=== PATIENT | female | born 1995 | race Caucasian/White ===

== ENCOUNTER 2020-01-29 10:59 | Inpatient (IN) ==
[2020-01-29] MEDS ORDERED: OXYTOCIN 30 UNITS/500 ML BAG IV PRN ×2 (12:32)
--- NOTE | 2020-01-29 12:46 | History & Physical Report ---
Date of Service January 29, 2020 Assessment & Plan (1) Post term at 41 weeks gestation: Admit to L&D, EFM/toco. Labs. IV fluids. OK for epidural. Pitocin. Admission and Anticipated Discharge Date Admission Date: January 29, 2020 History of Present Illness Chief Complaint: induction of labor Primary Care Provider: Ivon Burnett MD 25yo @ 41 0/7, here for IOL for postdates. Ortiz balloon inserted last night, fell out 8am today. Feeling well today. + movement, no vaginal bleeding, no leaking of fluid. Occasional contractions. uncomplicated. Allergies Allergy/AdvReac Type Severity Reaction Status Date / Time No Known Allergies Allergy Verified 01/29/20 11:17 Home Medications Home Medications Medication Instructions Recorded Confirmed Type docosahexaenoic acid 200 mg capsule 200 mg PO DAILY 06/18/19 01/29/20 History acetaminophen 325 mg capsule 325 mg PO QID PRN 01/22/20 01/29/20 History calcium carbonate 300 mg (750 mg) 300 mg PO QID PRN 01/22/20 01/29/20 History chewable tablet Patient History Medical History Asthma Encounter for anatomic survey GERD (gastroesophageal reflux disease) Migraine Varicella vaccine Surgical History No pertinent past surgical history Family History Brother Anxiety Grandfather Colorectal cancer Diabetes Father Diabetes Hypertension Grandmother Diabetes Mother Hypertension Hyperlipidemia Aunt Breast cancer Uncle Myocardial infarction Social History Smoking Status: Never smoker Second Hand Exposure: No; Hx Alcohol Use: No (rarely) Hx Substance Use: No Preferred Language: Urdu Revenue Settlements Administrator Required: No Beliefs That Will Affect Care: None marital status: marital status details: Donald Pettit (28) [phone] Current Living Situation: Spouse Current Living Situation Comment: lives with spouse, 1 dog, 1 cat, spouse changes litter current occupational status: employed 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 Feels Safe at Home: Yes Safety Concerns: Feels Safe At This Time Childhood Exposure to Second-Hand Smoke: No Dental Care, Regularly: Yes Physical Activity Frequency: 1-2 Times per Week Review of Systems All systems reviewed & are unremarkable except as noted in HPI & below Physical Exam Physical Exam: Cervix 4/70/-2 FHT Cat 1 [place] occasional Constitutional: WD/WN, vitals as above Respiratory: normal respiratory effort, lungs clear to auscultation no respiratory distress Cardiovascular: Rate/Rhythm: regular rate and regular rhythm Gastrointestinal (Abdomen): Inspection/Auscultation: abdomen normal to inspection Percussion/Palpation: abdomen soft; abdomen nontender Gravid. No s/s chorio or abruption. Skin: no rashes, warm and dry Psychiatric: A+Ox3, euthymic affect Results & Data ([facility]) Vital Signs (Past 12 Hours) Vital Signs Temp Pulse Resp BP 01/29/20 11:15 37.4 C 20 01/29/20 11:10 120 H 119/65 Coding Level of Care Code None Diagnoses Post term at 41 weeks gestation O48.0; Z3A.41
[2020-01-29] MEDS: LACTATED RINGER'S 1,000 ML IV PRN ×2 (13:07→16:57)
[2020-01-29 13:22] LABS: Hematocrit (blood only) 39.8 % (37-47); Hemoglobin 13.2 g/dL (12.0-16.0); Mean Corpuscular Hemoglobin 31.1 pg (25-34); Mean Corpuscular Hgb Conc 33.2 g/dL (32-36); Mean Corpuscular Volume 93.6 fL (80-100); Platelet Count 121 K/uL (130-400); Platelet Estimate Decreased (Normal); RDW Coefficient of Variation 13.8 % (11.5-14.5); RDW Standard Deviation 47.3 fL (36.4-46.3); Red Blood Count 4.25 M/uL (4.2-5.4); White Blood Count 13.88 K/uL (4.8-10.8)
[2020-01-29] MEDS ORDERED: BUTORPHANOL TARTRATE 1 MG/ML VIAL IV STA (16:13)
[2020-01-29] MEDS ORDERED: BUTORPHANOL TARTRATE 1 MG/ML VIAL ONE (16:16)
[2020-01-29] MEDS ORDERED: ePHEDrine sulfate 50 MG/ML AMP ONE (16:25)
[2020-01-29] MEDS ORDERED: BUPIVACAINE 0.25% 30 ML VIAL ONE ×2 (16:25→23:44)
[2020-01-29] MEDS ORDERED: fentaNYL citrate 100 MCG/2 ML VIAL ONE (16:25)
[2020-01-29] MEDS ORDERED: fentaNYL 2MCG/ML ROPIV 1.25MG/ML 100 ML BAG EPI ONE (16:26)
--- NOTE | 2020-01-29 16:47 | Anesthesiology Consultation ---
Date of Service January 29, 2020 Assessment & Plan Chart Review Chart Review: Patient NOT seen in Pre Admission Testing and Acceptable Risk for Labor Epidural Consults Requested none ASA ASA2 Proposed Anesthesia Anesthesia Type: Labor Epidural Risk / Benefits Reviewed With: PT / POA / Parent / Guardian, Accepts Plan and Informed Consent Obtained History Height/Weight Height: 5 ft 2 in Weight: 95.254 kg Allergies Allergy/AdvReac Type Severity Reaction Status Date / Time No Known Allergies Allergy Verified 01/29/20 11:17 Medications Home Medications Medication Instructions Recorded Confirmed Last Taken docosahexaenoic acid 200 mg capsule 200 mg PO DAILY 06/18/19 01/29/20 01/27/20 20:00 acetaminophen 325 mg capsule 325 mg PO QID PRN 01/22/20 01/29/20 01/29/20 05:00 calcium carbonate 300 mg (750 mg) 300 mg PO QID PRN 01/22/20 01/29/20 01/27/20 18:00 chewable tablet Active Medications Generic Name Dose Route Start Last Admin Trade Name Vladimirq PRN Reason Stop Dose Admin Lactated Ringer's 1,000 mls @ 125 mls/hr 01/29/20 12:32 01/29/20 16:23 Lr IV 01/31/20 12:31 999 mls/hr .Q8H PRN Infusion L&D Protocol Protocol Oxytocin 30 units in 500 mls @ 7 mls/hr 01/29/20 12:32 01/29/20 15:15 Pitocin IV 01/31/20 12:31 0.42 units/hr .Q24H PRN 7 mls/hr Labor Induction/Augmentation Titration Protocol 0.42 UNITS/HR NPO Date Last Intake of Fluids: 01/29/20 Time Last Intake of Fluids: 16:46 Date Last Intake of Solids: 01/29/20 Time Last Intake of Solids: 10:00 Past Medical History Medical History Asthma Encounter for anatomic survey GERD (gastroesophageal reflux disease) Migraine Varicella vaccine Exercise / Class Metabolic Activity II 4-5 Yardwork/Stairs/Walk up hill Past Family History Family History Brother Anxiety Grandfather Colorectal cancer Diabetes Father Diabetes Hypertension Grandmother Diabetes Mother Hypertension Hyperlipidemia Aunt Breast cancer Uncle Myocardial infarction Past Surgical History Surgical History No pertinent past surgical history Past Anesthesia History No Family Hx of Anesthesia Complications History of PONV No Hx of Motion Sickness Social History Smoking Status: Never smoker Hx Alcohol Use: No (rarely) Hx Substance Use: No substance use type: does not use Review of Systems Patient denies history of abnormal bleeding or bleeding disorder. Patient denies active use of anticoagulants other than low dose aspirin. Patient denies numbness, tingling or weakness in lower extremities. Negative for chest pain or shortness of breath. Physical Exam Vital Signs Last Vital Signs Temp 37.0 C 01/29/20 15:00 Pulse 105 H 01/29/20 16:40 Resp 18 01/29/20 15:00 BP 137/63 01/29/20 16:06 Pulse Ox 97 01/29/20 16:40 Constitutional not obese (Gravid ) ENMT Mouth: no TMJ abnormality and oral opening not small Thyromental Distance: > or= 3.5 Finger Breadths Mallampati Class: II Neck normal visual inspection; neck extension not limited Respiratory normal respiratory effort Auscultation: lungs clear to auscultation bilaterally Cardiovascular Rate/Rhythm: regular rate and regular rhythm Heart Sounds: no murmur Neurologic moves all extremities Motor/Sensory: no sensory deficit Psychiatric Orientation: alert and oriented x 3 Testing Laboratory Results 01/29/20 12:44
[2020-01-29] MEDS ORDERED: DiphenhydrAMINE HCL 50 MG/ML VIAL IV PRN (17:21)
[2020-01-29] MEDS ORDERED: NALOXONE HCL 0.4 MG/1 ML VIAL/CARP IV PRN (17:21)
[2020-01-29] MEDS ORDERED: ePHEDrine sulfate 50 MG/ML AMP IV PRN (17:21)
[2020-01-29] MEDS ORDERED: NALOXONE HCL 1 MG in SODIUM CHLORIDE 0.9% 1000ML 1,000 ML IV PRN (17:21)
[2020-01-29] MEDS ORDERED: ONDANSETRON INJ 2 MG/ML 2 ML VIAL IV PRN (17:21)
--- NOTE | 2020-01-29 21:56 | Labor Progress Brief Note ---
Date of Service January 29, 2020 Subjective Comfortable with epidural. SVE 5/80/-2 AROM clear fluid. FHT Cat 1 [place] Q 2. Anticipate . Assessment & Plan Admission and Anticipated Discharge Date Admission Date: January 29, 2020 Results & Data ([facility]) Vital Signs (Past 12 Hours) Vital Signs Temp Pulse Resp BP Pulse Ox 01/29/20 21:50 122 H 99 01/29/20 21:45 37.3 C 120 H 18 98 01/29/20 21:41 118 H 121/59 L 01/29/20 21:40 112 H 97 01/29/20 21:35 116 H 98 01/29/20 21:30 127 H 100 01/29/20 21:26 112 H 124/66 01/29/20 21:25 98 H 98 01/29/20 21:20 93 H 99 01/29/20 21:15 121 H 100 01/29/20 21:12 107 H 121/65 01/29/20 21:10 114 H 99 01/29/20 21:05 111 H 99 01/29/20 21:00 110 H 100 01/29/20 20:57 114 H 128/70 01/29/20 20:55 106 H 100 01/29/20 20:50 133 H 100 01/29/20 20:45 129 H 100 01/29/20 20:43 118 H 132/67 01/29/20 20:40 127 H 100 01/29/20 20:35 90 100 01/29/20 20:30 113 H 100 01/29/20 20:26 110 H 116/64 01/29/20 20:25 103 H 98 01/29/20 20:20 115 H 99 01/29/20 20:15 94 H 99 01/29/20 20:12 104 H 108/59 L 01/29/20 20:10 94 H 98 01/29/20 20:05 117 H 99 01/29/20 20:00 103 H 100 01/29/20 19:55 116 H 99 01/29/20 19:50 107 H 98 01/29/20 19:45 91 H 99 01/29/20 19:43 106 H 115/56 L 01/29/20 19:40 99 H 98 01/29/20 19:35 98 H 99 01/29/20 19:30 95 H 99 01/29/20 19:27 92 H 109/56 L 01/29/20 19:25 95 H 100 01/29/20 19:20 91 H 99 01/29/20 19:15 89 99 01/29/20 19:12 90 116/60 01/29/20 19:10 86 100 01/29/20 19:05 36.8 C 94 H 18 100 01/29/20 19:00 100 H 16 100 01/29/20 18:57 109 H 113/58 L 01/29/20 18:55 96 H 100 01/29/20 18:50 98 H 98 01/29/20 18:45 101 H 16 100 01/29/20 18:40 99 H 99 01/29/20 18:36 88 108/63 01/29/20 18:35 85 98 01/29/20 18:30 117 H 16 97/51 L 99 01/29/20 18:25 84 102/55 L 97 01/29/20 18:21 87 105/58 L 01/29/20 18:20 93 H 95 01/29/20 18:16 97 H 111/55 L 01/29/20 18:15 91 H 18 97 01/29/20 18:11 89 112/55 L 01/29/20 18:10 92 H 96 01/29/20 18:05 90 111/58 L 96 01/29/20 18:00 101 H 16 113/58 L 97 01/29/20 17:55 107 H 106/55 L 97 01/29/20 17:50 109 H 109/55 L 98 01/29/20 17:45 102 H 18 113/59 L 98 01/29/20 17:40 111 H 114/56 L 98 01/29/20 17:36 106 H 117/58 L 01/29/20 17:35 100 H 96 01/29/20 17:30 108 H 18 97 01/29/20 17:28 104 H 112/53 L 01/29/20 17:26 113 H 113/56 L 01/29/20 17:25 107 H 98 01/29/20 17:24 104 H 114/55 L 01/29/20 17:22 104 H 111/54 L 01/29/20 17:20 114 H 114/58 L 97 01/29/20 17:18 111 H 115/55 L 01/29/20 17:16 96 H 16 133/67 01/29/20 17:15 107 H 98 01/29/20 17:10 118 H 98 01/29/20 17:05 96 H 119/77 97 01/29/20 17:00 119 H 98 01/29/20 16:55 115 H 97 01/29/20 16:50 125 H 95 01/29/20 16:45 104 H 97 01/29/20 16:40 105 H 97 01/29/20 16:35 111 H 97 01/29/20 16:30 105 H 96 01/29/20 16:27 108 H 93 01/29/20 16:25 108 H 96 01/29/20 16:20 93 H 100 01/29/20 16:06 93 H 137/63 01/29/20 15:11 112 H 131/76 01/29/20 15:00 37.0 C 01/29/20 14:05 99 H 131/72 01/29/20 13:05 96 H 122/70 01/29/20 11:15 37.4 C 01/29/20 11:10 120 H 119/65 Coding Level of Care Code None
[2020-01-30] MEDS: fentaNYL 2MCG/ML ROPIV 1.25MG/ML 100 ML BAG EPI PRN ×2 (00:05→05:35)
[2020-01-30] MEDS: LACTATED RINGER'S 1,000 ML IV PRN ×2 (00:23→05:04)
[2020-01-30] MEDS ORDERED: Nursing to Pharmacy Communication SCH (05:30)
[2020-01-30] MEDS ORDERED: BUPIVACAINE 0.25% 30 ML VIAL ONE (07:53)
--- NOTE | 2020-01-30 09:44 | Labor Progress Brief Note ---
Date of Service January 30, 2020 Subjective Reason For Note: Routine Evaluation pt aware i am taking over care. comfortable with epidural. Assessment & Plan (1) Post term at 41 weeks gestation: (2) Encounter for elective induction of labor: will begin 2nd stage, rec position change with pushing, categ 2 fhts. Admission and Anticipated Discharge Date Admission Date: January 29, 2020 Physical Exam Constitutional: WD/WN, vitals as above Genitourinary: Manual OB Exam: + cervical dilation 10 cm, + cervical effacement 100% and + station + 2 OB Exam Monitor Tracing: + external FHT monitor used (135 mod variability), + external uterine monitor used, + category II, + normal FHT variability and + variable decelerations Results & Data ([facility]) Vital Signs (Past 12 Hours) Vital Signs Temp Pulse Resp BP Pulse Ox 01/30/20 09:41 74 91 01/30/20 09:40 84 99 01/30/20 09:36 84 116/57 L 01/30/20 09:35 86 99 01/30/20 09:30 98 H 97 01/30/20 09:28 82 91 01/30/20 09:25 88 97 01/30/20 09:20 92 H 124/72 99 01/30/20 09:18 96 H 91 01/30/20 09:15 90 96 01/30/20 09:12 116 H 93 01/30/20 09:10 100 H 98 01/30/20 09:05 98.8 F 114 H 127/63 100 01/30/20 09:00 103 H 100 01/30/20 08:55 98 H 97 01/30/20 08:50 99 H 126/69 98 01/30/20 08:45 86 97 01/30/20 08:40 87 97 01/30/20 08:35 85 97 01/30/20 08:34 83 122/67 01/30/20 08:31 84 122/66 01/30/20 08:30 88 97 01/30/20 08:28 81 125/69 01/30/20 08:25 89 119/64 96 01/30/20 08:22 88 118/64 01/30/20 08:20 88 96 01/30/20 08:19 88 124/70 01/30/20 08:16 86 123/74 01/30/20 08:15 88 96 01/30/20 08:13 86 124/74 01/30/20 08:10 83 127/76 98 01/30/20 08:07 103 H 127/82 01/30/20 08:05 97 H 96 01/30/20 08:04 86 123/72 01/30/20 08:00 90 125/72 99 01/30/20 07:58 93 H 128/69 01/30/20 07:55 95 H 97 01/30/20 07:50 89 96 01/30/20 07:45 86 97 01/30/20 07:40 88 127/60 97 01/30/20 07:35 91 H 99 01/30/20 07:30 103 H 18 99 01/30/20 07:25 89 163/59 H 97 01/30/20 07:20 95 H 98 01/30/20 07:15 96 H 98 01/30/20 07:14 99.1 F 16 01/30/20 07:11 91 H 145/63 H 01/30/20 07:10 97 H 98 01/30/20 07:05 113 H 98 01/30/20 07:00 101 H 97 01/30/20 06:55 100 H 97 01/30/20 06:50 100 H 96 01/30/20 06:45 100 H 97 01/30/20 06:40 95 H 111/56 L 97 01/30/20 06:35 101 H 98 01/30/20 06:30 93 H 98 01/30/20 06:25 103 H 97 01/30/20 06:20 91 H 96 01/30/20 06:15 100 H 98 01/30/20 06:10 97 H 96 01/30/20 06:05 98 H 98 01/30/20 06:00 95 H 98 01/30/20 05:55 101 H 132/73 97 01/30/20 05:50 106 H 97 01/30/20 05:45 104 H 97 01/30/20 05:40 96 H 136/88 97 01/30/20 05:35 100 H 98 01/30/20 05:30 94 H 98 20 05:25 97 H 123/58 L 97 01/30/20 05:20 102 H 98 01/30/20 05:15 96 H 98 01/30/20 05:11 101 H 120/63 01/30/20 05:10 98 H 98 01/30/20 05:05 91 H 98 01/30/20 05:00 98 H 97 01/30/20 04:55 94 H 123/60 96 01/30/20 04:50 96 H 96 01/30/20 04:45 99.1 F 104 H 96 01/30/20 04:40 99 H 96 01/30/20 04:39 96 H 125/59 L 01/30/20 04:35 101 H 97 01/30/20 04:30 98 H 97 01/30/20 04:25 101 H 97 01/30/20 04:24 93 H 124/57 L 01/30/20 04:20 94 H 97 01/30/20 04:15 94 H 97 01/30/20 04:11 92 H 125/66 01/30/20 04:10 95 H 98 01/30/20 04:05 93 H 97 01/30/20 04:00 107 H 99 01/30/20 03:55 107 H 120/79 99 01/30/20 03:50 98 H 98 01/30/20 03:45 101 H 97 01/30/20 03:40 94 H 96 01/30/20 03:39 104 H 124/67 01/30/20 03:35 90 96 01/30/20 03:30 95 H 97 01/30/20 03:26 93 H 121/67 01/30/20 03:25 97 H 97 01/30/20 03:20 101 H 97 01/30/20 03:15 100 H 98 01/30/20 03:11 110 H 128/70 01/30/20 03:10 108 H 98 01/30/20 03:05 102 H 98 01/30/20 03:00 96 H 100 01/30/20 02:55 121 H 116/77 98 0720 02:51 116 H 117/79 01/30/20 02:50 111 H 99 01/30/20 02:48 105 H 93 01/30/20 02:45 136 H 99 01/30/20 02:40 112 H 100 01/30/20 02:35 126 H 100 01/30/20 02:30 98.4 F 110 H 98 01/30/20 02:26 107 H 116/64 01/30/20 02:25 107 H 99 01/30/20 02:20 119 H 100 01/30/20 02:15 111 H 98 01/30/20 02:10 105 H 146/71 H 98 01/30/20 02:05 112 H 97 01/30/20 02:00 115 H 97 01/30/20 01:55 111 H 140/71 97 01/30/20 01:50 114 H 97 01/30/20 01:45 104 H 98 01/30/20 01:40 104 H 135/78 97 01/30/20 01:35 104 H 98 01/30/20 01:30 119 H 97 01/30/20 01:26 125 H 138/78 01/30/20 01:25 124 H 98 01/30/20 01:20 109 H 97 01/30/20 01:15 124 H 98 01/30/20 01:10 94 H 140/66 98 01/30/20 01:05 105 H 97 01/30/20 01:00 119 H 98 01/30/20 00:55 114 H 133/69 99 01/30/20 00:50 90 100 01/30/20 00:45 110 H 99 01/30/20 00:41 105 H 131/74 01/30/20 00:40 108 H 99 01/30/20 00:35 133 H 100 01/30/20 00:30 93 H 100 01/30/20 00:25 125 H 134/72 99 01/30/20 00:20 95 H 99 01/30/20 00:15 118 H 100 01/30/20 00:10 111 H 98 01/30/20 00:09 99 H 134/67 01/30/20 00:06 122 H 131/63 01/30/20 00:05 112 H 96 01/30/20 00:03 102 H 138/63 01/30/20 00:01 98.6 F 01/30/20 00:00 111 H 131/67 96 01/29/20 23:58 116 H 94 01/29/20 23:57 102 H 124/59 L 01/29/20 23:55 101 H 98 01/29/20 23:54 104 H 128/62 01/29/20 23:52 96 H 131/62 01/29/20 23:50 96 H 96 01/29/20 23:48 105 H 93 01/29/20 23:45 100 H 96 01/29/20 23:42 129 H 106/75 01/29/20 23:40 107 H 98 01/29/20 23:35 97 H 97 01/29/20 23:30 97 H 97 01/29/20 23:27 93 H 111/53 L 01/29/20 23:25 99 H 97 01/29/20 23:20 97 H 97 01/29/20 23:15 101 H 97 01/29/20 23:12 91 H 133/60 01/29/20 23:10 104 H 96 01/29/20 23:05 94 H 96 01/29/20 23:00 102 H 98 01/29/20 22:56 114 H 132/61 01/29/20 22:55 100 H 96 01/29/20 22:50 104 H 97 01/29/20 22:45 100 H 97 01/29/20 22:42 99 H 130/60 01/29/20 22:40 113 H 97 01/29/20 22:35 124 H 97 01/29/20 22:30 117 H 98 01/29/20 22:25 110 H 97 01/29/20 22:20 122 H 98 01/29/20 22:15 122 H 98 01/29/20 22:13 121 H 115/60 01/29/20 22:10 121 H 97 01/29/20 22:05 115 H 97 01/29/20 22:00 126 H 98 01/29/20 21:58 123 H 116/71 01/29/20 21:55 123 H 98 01/29/20 21:50 122 H 99 01/29/20 21:45 99.1 F 120 H 18 98 Coding Level of Care Code None Diagnoses Post term at 41 weeks gestation O48.0; Z3A.41 Encounter for elective induction of labor Z34.90
--- NOTE | 2020-01-30 10:49 | Labor Progress Brief Note ---
Date of Service January 30, 2020 Subjective Reason For Note: Routine Evaluation pushing well. Assessment & Plan (1) Post term at 41 weeks gestation: (2) Encounter for elective induction of labor: pushing effectively. cont 2nd stage. fhts categ 2. Admission and Anticipated Discharge Date Admission Date: January 29, 2020 Physical Exam Genitourinary: OB Exam Monitor Tracing: + external FHT monitor used (150 mod variability), + external uterine monitor used (q2), + category II and + variable decelerations Results & Data ([facility]) Vital Signs (Past 12 Hours) Vital Signs Temp Pulse Resp BP Pulse Ox 01/30/20 10:47 109 H 91 01/30/20 10:46 97 H 97 01/30/20 10:41 97 H 99 01/30/20 10:40 101 H 93 01/30/20 10:36 90 99 01/30/20 10:32 120 H 92 01/30/20 10:31 101 H 100 01/30/20 10:30 24 01/30/20 10:26 123 H 100 01/30/20 10:21 113 H 122/68 96 01/30/20 10:15 94 H 94 01/30/20 10:10 120 H 100 01/30/20 10:06 86 126/64 01/30/20 10:05 110 H 98 01/30/20 10:00 99 H 20 100 01/30/20 09:59 78 89 L 01/30/20 09:55 100 H 100 01/30/20 09:52 88 122/70 01/30/20 09:51 93 H 83 L 01/30/20 09:50 92 H 99 01/30/20 09:45 92 H 100 01/30/20 09:41 74 91 01/30/20 09:40 84 99 01/30/20 09:36 84 116/57 L 01/30/20 09:35 86 99 01/30/20 09:30 98 H 20 97 01/30/20 09:28 82 91 01/30/20 09:25 88 97 01/30/20 09:20 92 H 124/72 99 01/30/20 09:18 96 H 91 01/30/20 09:15 90 96 01/30/20 09:12 116 H 93 01/30/20 09:10 100 H 98 01/30/20 09:05 98.8 F 114 H 127/63 100 01/30/20 09:00 103 H 18 100 01/30/20 08:55 98 H 97 01/30/20 08:50 99 H 126/69 98 20 08:45 86 97 01/30/20 08:40 87 97 01/30/20 08:35 85 97 01/30/20 08:34 83 122/67 01/30/20 08:31 84 122/66 01/30/20 08:30 88 20 97 20 08:28 81 125/69 20 08:25 89 119/64 96 20 08:22 88 118/64 01/30/20 08:20 88 96 01/30/20 08:19 88 124/70 01/30/20 08:16 86 123/74 01/30/20 08:15 88 96 01/30/20 08:13 86 124/74 01/30/20 08:10 83 127/76 98 01/30/20 08:07 103 H 127/82 01/30/20 08:05 97 H 96 01/30/20 08:04 86 123/72 01/30/20 08:00 90 18 125/72 99 01/30/20 07:58 93 H 128/69 01/30/20 07:55 95 H 97 01/30/20 07:50 89 96 01/30/20 07:45 86 97 01/30/20 07:40 88 127/60 97 01/30/20 07:35 91 H 99 01/30/20 07:30 103 H 18 99 01/30/20 07:25 89 163/59 H 97 01/30/20 07:20 95 H 98 01/30/20 07:15 96 H 98 20 07:14 99.1 F 16 01/30/20 07:11 91 H 145/63 H 01/30/20 07:10 97 H 98 01/30/20 07:05 113 H 98 01/30/20 07:00 101 H 97 01/30/20 06:55 100 H 97 01/30/20 06:50 100 H 96 01/30/20 06:45 100 H 97 01/30/20 06:40 95 H 111/56 L 97 01/30/20 06:35 101 H 98 01/30/20 06:30 93 H 98 01/30/20 06:25 103 H 97 01/30/20 06:20 91 H 96 01/30/20 06:15 100 H 98 01/30/20 06:10 97 H 96 01/30/20 06:05 98 H 98 01/30/20 06:00 95 H 98 01/30/20 05:55 101 H 132/73 97 01/30/20 05:50 106 H 97 01/30/20 05:45 104 H 97 01/30/20 05:40 96 H 136/88 97 01/30/20 05:35 100 H 98 01/30/20 05:30 94 H 98 01/30/20 05:25 97 H 123/58 L 97 01/30/20 05:20 102 H 98 01/30/20 05:15 96 H 98 01/30/20 05:11 101 H 120/63 01/30/20 05:10 98 H 98 01/30/20 05:05 91 H 98 01/30/20 05:00 98 H 97 01/30/20 04:55 94 H 123/60 96 01/30/20 04:50 96 H 96 01/30/20 04:45 99.1 F 104 H 96 01/30/20 04:40 99 H 96 01/30/20 04:39 96 H 125/59 L 01/30/20 04:35 101 H 97 01/30/20 04:30 98 H 97 01/30/20 04:25 101 H 97 01/30/20 04:24 93 H 124/57 L 01/30/20 04:20 94 H 97 01/30/20 04:15 94 H 97 01/30/20 04:11 92 H 125/66 01/30/20 04:10 95 H 98 01/30/20 04:05 93 H 97 01/30/20 04:00 107 H 99 01/30/20 03:55 107 H 120/79 99 01/30/20 03:50 98 H 98 01/30/20 03:45 101 H 97 01/30/20 03:40 94 H 96 01/30/20 03:39 104 H 124/67 01/30/20 03:35 90 96 01/30/20 03:30 95 H 97 07/23/20 03:26 93 H 121/67 0720 03:25 97 H 97 20 03:20 101 H 97 0720 03:15 100 H 98 01/30/20 03:11 110 H 128/70 0720 03:10 108 H 98 01/30/20 03:05 102 H 98 07 03:00 96 H 100 01/30/20 02:55 121 H 116/77 98 20 02:51 116 H 117/79 0720 02:50 111 H 99 01/30/20 02:48 105 H 93 01/30/20 02:45 136 H 99 01/30/20 02:40 112 H 100 01/30/20 02:35 126 H 100 01/30/20 02:30 98.4 F 110 H 98 01/30/20 02:26 107 H 116/64 01/30/20 02:25 107 H 99 01/30/20 02:20 119 H 100 01/30/20 02:15 111 H 98 01/30/20 02:10 105 H 146/71 H 98 01/30/20 02:05 112 H 97 01/30/20 02:00 115 H 97 01/30/20 01:55 111 H 140/71 97 01/30/20 01:50 114 H 97 20 01:45 104 H 98 01/30/20 01:40 104 H 135/78 97 20 01:35 104 H 98 01/30/20 01:30 119 H 97 01/30/20 01:26 125 H 138/78 0720 01:25 124 H 98 0720 01:20 109 H 97 20 01:15 124 H 98 20 01:10 94 H 140/66 98 20 01:05 105 H 97 20 01:00 119 H 98 01/30/20 00:55 114 H 133/69 99 07/20 00:50 90 100 0720 00:45 110 H 99 0720 00:41 105 H 131/74 0720 00:40 108 H 99 20 00:35 133 H 100 07/23/20 00:30 93 H 100 01/30/20 00:25 125 H 134/72 99 01/30/20 00:20 95 H 99 01/30/20 00:15 118 H 100 01/30/20 00:10 111 H 98 01/30/20 00:09 99 H 134/67 01/30/20 00:06 122 H 131/63 01/30/20 00:05 112 H 96 01/30/20 00:03 102 H 138/63 01/30/20 00:01 98.6 F 01/30/20 00:00 111 H 131/67 96 01/29/20 23:58 116 H 94 01/29/20 23:57 102 H 124/59 L 01/29/20 23:55 101 H 98 01/29/20 23:54 104 H 128/62 01/29/20 23:52 96 H 131/62 01/29/20 23:50 96 H 96 01/29/20 23:48 105 H 93 01/29/20 23:45 100 H 96 01/29/20 23:42 129 H 106/75 01/29/20 23:40 107 H 98 01/29/20 23:35 97 H 97 01/29/20 23:30 97 H 97 01/29/20 23:27 93 H 111/53 L 01/29/20 23:25 99 H 97 01/29/20 23:20 97 H 97 01/29/20 23:15 101 H 97 01/29/20 23:12 91 H 133/60 01/29/20 23:10 104 H 96 01/29/20 23:05 94 H 96 01/29/20 23:00 102 H 98 01/29/20 22:56 114 H 132/61 01/29/20 22:55 100 H 96 01/29/20 22:50 104 H 97 Coding Level of Care Code None Diagnoses Post term at 41 weeks gestation O48.0; Z3A.41 Encounter for elective induction of labor Z34.90
--- NOTE | 2020-01-30 11:32 | Delivery Summary ---
Vaginal Delivery Summary Date of Service January 30, 2020 The patient dilated to complete and pushed to deliver a viable male infant Apgars 8 and 8 via over 2nd degree perineal laceration. Mouth and nose bulb suctioned at perineum. Shoulders and body delivered with ease. Infant was vigorous and crying at . Cord clamped at 30 seconds of life and to maternal abdomen where the cord was then doubly clamped and cut. Laceration repaired in usual fashion with 3-0 vicryl after 1% local lidocaine anesthesia. Placenta delivered spontaneously and intact, three-vessel cord. Hemostasis achieved with dilute pitocin and uterine massage. Cervix and sulci intact. EBL 300 cc. Mother and baby stable recovery. [facility] [place] Vaginal Delivery Charge Vaginal Delivery Codes: 53277 global code for the antepartum, delivery, and post-
[2020-01-30] MEDS ORDERED: ACETAMINOPHEN 325 MG TAB PO PRN (11:34)
[2020-01-30] MEDS ORDERED: OXYCODONE/ACETAMINOPHEN 5mg/325mg TAB PO PRN (11:34)
[2020-01-30] MEDS ORDERED: OXYTOCIN 20 UNITS in LACTATED RINGER'S 1,000 ML IV SCH (11:45)
[2020-01-30] MEDS: IBUPROFEN 600 MG TAB PO PRN (11:48)
--- NOTE | 2020-01-30 12:00 | Anesthesia Procedure Note ---
Date of Service January 30, 2020 Anesthesia Post Epidural Note Vital Signs Vital Signs: Temp Pulse Resp BP Pulse Ox 38.0 C H 87 24 125/61 87 L 01/30/20 10:57 01/30/20 11:44 01/30/20 10:30 01/30/20 11:44 01/30/20 11:27 Pain Intensity Back: Pain Intensity: 7 Notes Mental Status: alert / awake / arousable and participated in evaluation Patient Amnestic to Procedure: No Nausea / Vomiting: adequately controlled Pain: adequately controlled Airway Patency, RR, SpO2: stable & adequate BP & HR: stable & adequate Hydration State: stable & adequate Neuraxial Anesthesia: was administered and sensory block is resolving Anesthetic Complications: no major complications apparent and Pt Satisfied with anesthetic care Epidural: Removed without complications and With tip intact Notes: mild back pain. site looks c/d/i. will monitor
[2020-01-30] MEDS ORDERED: HYDROCORTISONE ACETATE 25 MG SUPP PR PRN (12:21)
[2020-01-30] MEDS ORDERED: SUPERCREAM 0.870% 15 GM JAR EXT PRN (12:21)
[2020-01-30] MEDS ORDERED: DIPHTHERIA/TETANUS/PERTUSSIS 0.5 ML SYR/VIAL IM ONE (12:21)
[2020-01-30] MEDS ORDERED: BENZOCAINE 20% AER SPR 82.5 GM CAN EXT PRN (12:21)
[2020-01-30] MEDS ORDERED: OXYTOCIN 30 UNITS/500 ML BAG IV PRN (12:21)
[2020-01-30] MEDS: DOCUSATE SODIUM 100 MG CAP PO SCH (20:10)
[2020-01-31] MEDS: IBUPROFEN 600 MG TAB PO PRN ×2 (03:23→15:26)
--- NOTE | 2020-01-31 07:05 | Obstetrical Progress Note ---
Date of Service January 31, 2020 Assessment & Plan (1) examination following vaginal delivery: stable, routine care. , rhpos, ri. Day #:: 1 Subjective Ambulation: ambulating normally Voiding: no voiding problems Diet Tolerance:: regular diet Lochia:: Small Feeding Type:: breast feeding denies pain issues Physical Exam Constitutional WD/WN, vitals as above Respiratory normal respiratory effort, lungs clear to auscultation Cardiovascular Rate/Rhythm: regular rate and regular rhythm Gastrointestinal (Abdomen) Inspection/Auscultation: abdomen normal to inspection Percussion/Palpation: abdomen soft Fundus firm 1cm down Musculoskeletal nt calves no edema Neurologic grossly normal Psychiatric A+Ox3, euthymic affect Results & Data ([facility]) Vital Signs (Past 12 Hours) Vital Signs Temp Pulse Resp BP Pulse Ox 01/31/20 03:05 97.9 F 90 18 114/67 01/30/20 23:05 97.5 F L 105 H 16 106/72 98 01/30/20 19:30 97.5 F L 99 H 16 104/68 97
[2020-01-31] MEDS: DOCUSATE SODIUM 100 MG CAP PO SCH ×2 (08:33→20:45)
--- NOTE | 2020-02-01 07:58 | Obstetrical Progress Note ---
Date of Service February 01, 2020 Assessment & Plan (1) examination following vaginal delivery: good recovery D/C to home follow up in 6 weeks Subjective Ambulation: ambulating normally Voiding: no voiding problems Passing Gas:: Yes Diet Tolerance:: regular diet Lochia:: Moderate Feeding Type:: breast feeding Review of Systems All systems reviewed & are unremarkable except as noted in HPI & below Physical Exam Constitutional WD/WN, vitals as above Psychiatric A+Ox3, euthymic affect Genitourinary OB Exam Abdomen: + fundal height Fundus: + firm and + relation to umbilicus (2 below U) Results & Data ([facility]) Vital Signs (Past 12 Hours) Vital Signs Temp Pulse Resp BP 01/31/20 23:25 98.1 F 80 18 117/68
[2020-02-01] MEDS: DOCUSATE SODIUM 100 MG CAP PO SCH (08:49)
== END 2020-02-01 10:05 | disposition home or self-care (01) | DRG 807 ==
LOC: 4S1 10:59 → 4S2 01-30 15:27

== ENCOUNTER 2023-02-17 07:32 | Inpatient (IN) ==
[2023-02-17] MEDS ORDERED: LIDOCAINE 1% LOCAL 20 ML VIAL INFIL PRN (07:54)
[2023-02-17] MEDS ORDERED: OXYTOCIN 30 UNITS/500 ML BAG IV PRN ×3 (07:54→17:50)
[2023-02-17 09:24] LABS: Hematocrit (blood only) 32.3 % (37.0-47.0); Hemoglobin 10.4 g/dl (12.0-16.0); Mean Corpuscular Hemoglobin 27.7 pg (25.0-34.0); Mean Corpuscular Hgb Conc 32.2 g/dL (32.0-36.0); Mean Corpuscular Volume 86.1 fL (80.0-100.0); Mean Platelet Volume 14.2 fL (9.4-12.4); Nucleated RBC # (auto) 0.02 K/uL (0-0.12); Nucleated RBC % (auto) 0.2 %; Platelet Count 123 K/uL (130-400); RDW Coefficient of Variation 14.6 % (11.5-14.5); RDW Standard Deviation 45.2 fL (36.4-46.3); Red Blood Count 3.75 M/uL (4.20-5.40); White Blood Count 10.55 K/ul (4.8-10.8)
[2023-02-17] MEDS: LACTATED RINGER'S 1,000 ML IV PRN ×2 (09:41→13:45)
--- NOTE | 2023-02-17 09:50 | History & Physical Report ---
Date of Service February 17, 2023 Assessment & Plan (1) Obesity affecting : Plan: 28 yo presents for IOL VSS Fetus cat 1 Labor - 35cc marie placed ,will start pit GBS neg epidural prn Admission and Anticipated Discharge Date Admission Date: February 17, 2023 History of Present Illness Chief Complaint: IOL Primary Care Provider: Kyra Quesada PA-C 28 yo at 40 wga presents for IOL for BMI. +FM; denies ctx, LOF, VB PNI: BMI >40 Past OBGYN Hx: G1 2020 G2 current denies hx STIs Allergies Allergy/AdvReac Type Severity Reaction Status Date / Time No Known Allergies Allergy Verified 02/16/23 09:54 Home Medications Medication Instructions Recorded Confirmed Type prenat.vits,pernell,ynx-hxts-epqdd 1 tab PO DAILY 07/08/22 02/17/23 History Patient History Medical History Acid reflux Acne Asthma Encounter for elective induction of labor Encounter for anatomic survey GERD (gastroesophageal reflux disease) Migraine Migraine headache Post term at 41 weeks gestation examination following vaginal delivery Supervision of normal intrauterine in primigravida Varicella vaccine Surgical History S/P sinus surgery Family History (Updated 07/08/22 @ 09:54 by Wandy Sykes) Brother Anxiety Grandfather Colorectal cancer Diabetes Father Diabetes Hypertension Grandmother Diabetes Mother Hypertension Hyperlipidemia Aunt Breast cancer Uncle Myocardial infarction Denies family history of Ovarian cancer Social History (Updated 07/08/22 @ 09:55 by Wandy Sykes) Smoking Status: Never smoker Second Hand Exposure: No; Do You Dip or Chew Tobacco: No; Hx Alcohol Use: No Hx Substance Use: No Preferred Language: Egyptian Communication Ability: Effective Reflexologist Required: No Beliefs That Will Affect Care: None marital status: marital status details: Donald Pettit (30) [phone] Current Living Situation: Spouse and Family Current Living Situation Comment: Lives with and 3 year old son, 1 dog. 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 Other Information That Helps Us Care for You: No Feels Safe at Home: Yes Safety Concerns: Feels Safe At This Time Childhood Exposure to Second-Hand Smoke: No Dental Care, Regularly: Yes Physical Activity Frequency: 1-2 Times per Week Assistive Devices: None Physical Exam Genitourinary: OB Exam Abdomen: + vertex (confirmed by us) and + estimated weight (7-8) Manual OB Exam: + cervical dilation 2 cm, + cervical effacement 50% and + station -2 OB Exam Monitor Tracing: + external FHT monitor used, + external uterine monitor used (irritability) and + category I (150/mod/+accel/-decel) Results & Data Vital Signs (Past 12 Hours) Vital Signs Temp Pulse Resp BP 02/17/23 07:54 99.1 F 116 H 18 124/65 Laboratory Results OB Labs: Blood Type B Positive 07/19/22 Antibody Screen NEGATIVE 07/19/22 Hemoglobin 11.6 g/dl (12.0-16.0) L 11/29/22 Hematocrit 35.0 % (37.0-47.0) L 11/29/22 Mean Corpuscular Volume 94.5 fL (80.0-100.0) 07/19/22 Platelet Count 214 K/uL (130-400) 07/19/22 Rubella IgG Antibody Immune (Immune) 07/19/22 Rapid Plasma Reagin Nonreactive (Nonreactive) 07/19/22 Hepatitis B Surface Antigen Neg (Neg) 06/26/19 Hepatitis B Surface Antigen. NON-REACTIVE (NON-REACTIVE) 07/19/22 Hepatitis C Antibody (EIA) NON-REACTIVE (NON-REACTIVE) 07/19/22 HIV (1&2) Ab and P24 Ag, 4th Gener Neg (Neg) 06/26/19 HIV (1&2) Ag and Ab Confirmation NON-REACTIVE (NON-REACTIVE) 07/19/22 Glucose 1 Hour 50 gm Load 159 mg/dl (70-130) H 11/29/22 OB Optional Labs: Chlamydia trachomatis RNA Not Detected (NotDetected) 07/19/22 Neisseria gonorrhoeae RNA Not Detected (NotDetected) 07/19/22 Labs Reviewed: declined cf/sma--akh cfdna-low risk-mln GBS neg Coding Level of Care Code None Diagnoses Obesity affecting O99.210
--- NOTE | 2023-02-17 12:43 | Labor Progress Brief Note ---
Date of Service February 17, 2023 Subjective Marie out, feeling pain in back Assessment & Plan (1) Obesity affecting : Plan: 28 yo presents for IOL VSS Fetus cat 1 Labor - marie out, pit at 4. Feeling pretty uncomfortable w/ ctx in back, open to epidural now. Discussed arom after GBS neg epidural prn Admission and Anticipated Discharge Date Admission Date: February 17, 2023 Physical Exam Genitourinary: Manual OB Exam: + cervical dilation (3-4), + cervical effacement 50% and + station -2 OB Exam Monitor Tracing: + external FHT monitor used, + external uterine monitor used (q4) and + category I (120/mod/+accel/-decel) Results & Data Vital Signs (Past 12 Hours) Vital Signs Temp Pulse Resp BP 02/17/23 12:00 98 H 119/59 L 02/17/23 11:48 90 126/69 02/17/23 11:01 96 H 124/61 02/17/23 10:00 100 H 133/78 02/17/23 07:54 99.1 F 116 H 18 124/65 Coding Level of Care Code None Diagnoses Obesity affecting O99.210
[2023-02-17] MEDS ORDERED: fentaNYL citrate PF 100 MCG/2 ML VIAL ONE (12:56)
[2023-02-17] MEDS ORDERED: BUPIVACAINE 0.25% PF 30 ML VIAL ONE (12:57)
[2023-02-17] MEDS ORDERED: SODIUM CHLORIDE 0.9% PF INJ 10 ML VIAL ONE (12:57)
[2023-02-17] MEDS ORDERED: ePHEDrine sulfate 50 MG/ML AMP ONE (12:57)
[2023-02-17] MEDS ORDERED: LIDOCAINE 2%/EPINEPHRINE 1:200,000 20 ML PF ONE (12:57)
[2023-02-17] MEDS ORDERED: fentaNYL 2MCG/ML ROPIVACAINE 1.25MG/ML 100 ML BAG EPI ONE (12:58)
[2023-02-17] MEDS ORDERED: fentaNYL 2MCG/ML ROPIVACAINE 1.25MG/ML 100 ML BAG EPI PRN (13:08)
[2023-02-17] MEDS ORDERED: LIDOCAINE 2%/EPINEPHRINE 1:200,000 20 ML PF EPI STA (13:08)
[2023-02-17] MEDS ORDERED: ROPIVACAINE 0.5% PF 5 MG/ML 20 ML VIAL EPI PRN (13:08)
[2023-02-17] MEDS ORDERED: SODIUM CHLORIDE 0.9% PF INJ 10 ML VIAL EPI PRN (13:08)
[2023-02-17] MEDS ORDERED: LIDOCAINE 2% MPF LOCAL 5 ML VIAL EPI PRN (13:08)
[2023-02-17] MEDS ORDERED: diphenhydrAMINE 50 MG/ML VIAL IV PRN (13:08)
[2023-02-17] MEDS ORDERED: NALOXONE HCL 1 MG in SODIUM CHLORIDE 0.9% 1000ML 1,000 ML IV PRN (13:08)
[2023-02-17] MEDS ORDERED: SODIUM CHLORIDE 0.9% PF INJ 10 ML VIAL EPI STA (13:08)
[2023-02-17] MEDS ORDERED: ePHEDrine sulfate 50 MG/ML AMP IV PRN (13:08)
[2023-02-17] MEDS ORDERED: NALBUPHINE HCL INJ 10 MG/ML AMP IV PRN (13:08)
[2023-02-17] MEDS ORDERED: BUPIVACAINE 0.25% PF 30 ML VIAL EPI PRN (13:08)
[2023-02-17] MEDS ORDERED: NALOXONE HCL 0.4 MG/1 ML VIAL/CARP IV PRN (13:08)
[2023-02-17] MEDS ORDERED: fentaNYL citrate PF 100 MCG/2 ML VIAL EPI PRN (13:08)
[2023-02-17] MEDS ORDERED: fentaNYL citrate PF 100 MCG/2 ML VIAL EPI STA (13:08)
[2023-02-17] MEDS ORDERED: BUPIVACAINE 0.25% PF 30 ML VIAL EPI STA (13:08)
--- NOTE | 2023-02-17 13:08 | Anesthesiology Consultation ---
Date of Service February 17, 2023 Assessment & Plan Chart Review Chart Review: Patient NOT seen in Pre Admission Testing and Acceptable Risk for Labor Epidural Consults Requested none History Height/Weight Height: 5 ft 3 in Weight: 98.43 kg Allergies Allergy/AdvReac Type Severity Reaction Status Date / Time No Known Allergies Allergy Verified 02/16/23 09:54 Medications Home Medications Medication Instructions Recorded Confirmed Last Taken prenat.vits,pernell,tsj-egyk-yaach 1 tab PO DAILY 07/08/22 02/17/23 02/16/23 Active Medications Generic Name Dose Route Start Last Admin Trade Name Freq PRN Reason Stop Dose Admin Oxytocin 30 units in 500 mls @ 4 mls/hr 02/17/23 07:54 02/17/23 11:30 Pitocin IV 02/19/23 07:53 0.24 units/hr .Q24H PRN 4 mls/hr Labor Induction/Augmentation Titration Protocol 0.24 UNITS/HR Lactated Ringer's 1,000 mls @ 125 mls/hr 02/17/23 07:54 02/17/23 09:41 Lr IV 02/19/23 07:53 125 mls/hr .Q8H PRN Administration L&D Protocol Protocol Past Medical History Medical History Acid reflux Acne Asthma Encounter for elective induction of labor Encounter for anatomic survey GERD (gastroesophageal reflux disease) Migraine Migraine headache Post term at 41 weeks gestation examination following vaginal delivery Supervision of normal intrauterine in primigravida Varicella vaccine Past Family History Family History Brother Anxiety Grandfather Colorectal cancer Diabetes Father Diabetes Hypertension Grandmother Diabetes Mother Hypertension Hyperlipidemia Aunt Breast cancer Uncle Myocardial infarction Denies family history of Ovarian cancer Past Surgical History Surgical History S/P sinus surgery Social History Smoking Status: Never smoker Do You Dip or Chew Tobacco: No Hx Alcohol Use: No Hx Substance Use: No substance use type: does not use Physical Exam Vital Signs Last Vital Signs Temp 99.1 F 02/17/23 07:54 Pulse 93 H 02/17/23 13:05 Resp 18 02/17/23 07:54 BP 139/64 02/17/23 13:05 Testing Laboratory Results 02/17/23 08:16 Blood Type B Positive 02/17/23 08:16 Antibody Screen NEGATIVE 02/17/23 08:16
[2023-02-17] MEDS ORDERED: CALCIUM CARBONATE 500 MG CHEWABLE TAB PO PRN (13:54)
[2023-02-17] MEDS ORDERED: HYDROCORTISONE ACETATE 25 MG SUPP PR PRN (17:50)
[2023-02-17] MEDS ORDERED: BENZOCAINE 20% SPRY 85 APPLN/85 GM CAN EXT PRN (17:50)
[2023-02-17] MEDS ORDERED: bisacodyL 10 MG SUPP PR PRN (17:50)
[2023-02-17] MEDS ORDERED: ACETAMINOPHEN 325 MG TAB PO PRN (17:50)
[2023-02-17] MEDS ORDERED: DIPHTHERIA/TETANUS/PERTUSSIS Vaccine (Tdap, Age 7+yrs) 0.5mL SYR/VL IM ONE (17:50)
--- NOTE | 2023-02-17 17:54 | Delivery Summary ---
Vaginal Delivery Summary Date of Service February 17, 2023 Vaginal Delivery Summary and 2nd Degree LAC Patient progressed to 10 cm dilated 100% effaced +1 station pushed over intact perineum with epidural anesthesia and delivered a viable male with weight and Apgars pending. Head of the delivered in ANTHONY position restituted to left transverse. was noted to be vigorous soon after delivery and a 1 minute delayed cord clamping was initiated. Cord was then do uble clamped and cut. remained on maternal abdomen. Cord blood was obtained. Attention was turned to delivery of the placenta which delivered intact with three-vessel cord with gentle cord traction. There is noted to be a second-degree perineal laceration which was repaired with 3-0 Vicryl in the traditional crown stitch. Needle sponge and instrument counts were correct at the completion of the case. Both mother and stable in the immediate postdelivery period. [facility] Vaginal Delivery Charge Delivery Type Details: and 2nd Degree LAC
--- NOTE | 2023-02-17 18:01 | Anesthesia Procedure Note ---
Date of Service February 17, 2023 Anesthesia Post Epidural Note Vital Signs Vital Signs: Temp Pulse Resp BP Pulse Ox 97.7 F 113 H 18 102/57 L 100 02/17/23 14:34 02/17/23 17:50 02/17/23 14:34 02/17/23 17:50 02/17/23 17:45 Notes Mental Status: alert / awake / arousable and participated in evaluation Nausea / Vomiting: adequately controlled Pain: adequately controlled Airway Patency, RR, SpO2: stable & adequate BP & HR: stable & adequate Hydration State: stable & adequate Neuraxial Anesthesia: was administered and sensory block is resolving Anesthetic Complications: no major complications apparent and Pt Satisfied with anesthetic care Epidural: Removed without complications and With tip intact
[2023-02-17] MEDS: DOCUSATE SODIUM 100 MG CAP PO SCH (21:33)
--- NOTE | 2023-02-17 21:40 | Obstetrical Progress Note ---
Date of Service <Juan Philip MD - Last Filed: 02/18/23 09:02> February 17, 2023 Assessment & Plan <Juan Philip MD - Last Filed: 02/18/23 09:02> (1) care following vaginal delivery: Plan Vital Signs reviewed and WNL. (Tmax at 37.3) Hemoglobin Reviewed. 10.4 (02/17/23) (date) 11.0 (today). Blood Type: B+, GBS-, Rubella Immune. Pt is doing well clinically. Encourage Ambulation, Monitor and Control pain with Motrin PRN, Resume regular diet, Monitor Lochia Encourage Breast Feeding. Pt counselled on discharge instructions. <Geraldo Ramos MD - Last Filed: 02/20/23 08:26> (1) care following vaginal delivery: Subjective <Juan Philip MD - Last Filed: 02/18/23 09:02> Ambulation: ambulating normally Voiding: no voiding problems and incontinence (no real constipation, hasn't eaten much since delivery) Passing Gas:: Yes Diet Tolerance:: nausea/vomiting (just a little nausea) Lochia:: Small Feeding Type:: breast feeding (supplementing with formula as needed) Current Pain Level(1-10): 2 (cramping in suprapubic area; 2nd deg laceration residual pain) 28 yo F, , s/p day 1 Eyes: no diplopia or no worsening vision Respiratory: no cough or no dyspnea Cardiovascular: no chest pain or no palpitations Gastrointestinal: + abdominal pain (cramping pain) and + nausea (a little nausea yesterday) Musculoskeletal: no joint pain, no myalgia or no body aches Neurologic: no tingling or no numbness Physical Exam <Juan Philip MD - Last Filed: 02/18/23 09:02> Constitutional WD/WN, vitals as above Respiratory normal respiratory effort, lungs clear to auscultation Cardiovascular RRR, no murmur, no edema Musculoskeletal no cyanosis or clubbing, extremities motor strength 5/5 Extremities: extremities normal to inspection (no calf pain or tenderness) Results & Data <Juan Philip MD - Last Filed: 02/18/23 09:02> Vital Signs (Past 12 Hours) Vital Signs Temp Pulse Resp BP Pulse Ox 02/17/23 20:05 37.1 C 20 02/17/23 19:35 18 02/17/23 18:35 123 H 18 131/58 L 02/17/23 18:20 117 H 18 118/55 L 02/17/23 18:05 18 02/17/23 18:50 123 H 18 131/58 L 02/17/23 17:50 37.3 C 113 H 18 102/57 L 02/17/23 20:07 126 H 115/55 L 02/17/23 19:36 126 H 95/54 L 02/17/23 19:21 122 H 103/55 L 02/17/23 19:06 129 H 111/53 L 02/17/23 18:51 131 H 120/57 L 02/17/23 18:36 123 H 131/58 L 02/17/23 18:20 117 H 118/55 L 02/17/23 17:50 113 H 102/57 L 02/17/23 17:45 107 H 100 02/17/23 17:43 109 H 108/54 L 02/17/23 17:40 96 H 100 02/17/23 17:35 102 H 98 02/17/23 17:30 127 H 100 02/17/23 17:29 120 H 122/55 L 02/17/23 17:28 126 H 90 02/17/23 17:25 135 H 100 02/17/23 17:20 122 H 99 02/17/23 17:15 102 H 98 02/17/23 17:13 103 H 125/70 02/17/23 17:10 109 H 98 02/17/23 17:05 96 H 100 02/17/23 16:00 18 02/17/23 17:00 116 H 18 99 02/17/23 16:59 114 H 118/60 02/17/23 16:55 111 H 100 02/17/23 16:50 103 H 99 02/17/23 16:45 98 H 99 02/17/23 16:44 106 H 121/64 02/17/23 16:40 100 H 99 02/17/23 16:39 105 H 88 L 02/17/23 16:35 96 H 99 02/17/23 16:30 115 H 98 08/11/23 16:28 103 H 117/60 02/17/23 16:25 121 H 99 02/17/23 16:20 123 H 98 02/17/23 16:15 121 H 97 02/17/23 16:14 117 H 110/52 L 02/17/23 16:10 116 H 97 02/17/23 16:05 120 H 98 02/17/23 16:00 125 H 98 02/17/23 15:59 114 H 103/51 L 02/17/23 15:55 109 H 97 02/17/23 15:50 116 H 99 02/17/23 15:45 124 H 100 02/17/23 15:40 125 H 125/58 L 100 02/17/23 15:35 103 H 97 02/17/23 15:30 102 H 98 02/17/23 15:25 101 H 95 02/17/23 15:20 101 H 97 02/17/23 15:21 98 H 119/58 L 02/17/23 15:15 107 H 97 02/17/23 15:14 90 116/54 L 02/17/23 15:10 109 H 98 02/17/23 15:09 99 H 118/57 L 02/17/23 15:05 95 H 98 02/17/23 15:04 112 H 119/58 L 02/17/23 15:00 107 H 18 99 02/17/23 14:58 96 H 114/55 L 02/17/23 14:55 92 H 99 02/17/23 14:54 100 H 114/56 L 02/17/23 14:50 106 H 98 02/17/23 14:49 104 H 119/56 L 93 02/17/23 14:45 105 H 18 98 02/17/23 14:44 92 H 111/53 L 02/17/23 14:40 104 H 99 02/17/23 14:41 102 H 121/57 L 02/17/23 14:35 92 H 100 02/17/23 14:34 36.5 C 90 18 117/57 L 98 02/17/23 14:30 104 H 18 99 02/17/23 14:28 102 H 132/59 L 02/17/23 14:25 100 02/17/23 14:25 97 H 02/17/23 14:25 97 H 122/56 L 02/17/23 14:20 93 H 98 02/17/23 14:19 108 H 119/58 L 02/17/23 14:15 101 H 18 97 02/17/23 14:14 111 H 120/55 L 02/17/23 14:10 120 H 99 02/17/23 14:07 112 H 124/58 L 02/17/23 14:05 117 H 100 02/17/23 14:04 111 H 176/119 H 02/17/23 14:02 111 H 143/94 H 02/17/23 14:00 101 H 18 100 02/17/23 13:59 101 H 151/84 H 02/17/23 13:57 108 H 142/90 H 02/17/23 13:55 107 H 100 02/17/23 13:56 106 H 138/73 02/17/23 13:54 99 H 152/72 H 02/17/23 13:52 97 H 02/17/23 13:52 137/76 02/17/23 13:52 103 H 163/71 H 02/17/23 13:50 100 02/17/23 13:50 97 H 02/17/23 13:50 97 H 139/65 02/17/23 13:48 103 H 137/76 02/17/23 13:45 102 H 18 100 02/17/23 13:46 100 H 134/74 02/17/23 13:43 96 H 147/75 H 02/17/23 13:41 104 H 142/71 H 02/17/23 13:40 98 H 18 100 02/17/23 13:39 105 H 132/68 02/17/23 13:37 102 H 136/72 02/17/23 13:35 101 H 18 100 02/17/23 13:30 93 H 100 02/17/23 13:25 103 H 100 02/17/23 13:20 120 H 100 02/17/23 13:15 102 H 100 02/17/23 13:05 93 H 139/64 02/17/23 12:00 36.4 C L 98 H 18 119/59 L 02/17/23 11:48 90 126/69 02/17/23 11:01 96 H 124/61 02/17/23 10:00 100 H 133/78 <Geraldo D. Kraft, MD - Last Filed: 02/20/23 08:26> Co-Signing Physician Notes Patient seen with resident and agree with the above findings and plan. Routine care. Stable for discharge
[2023-02-17] MEDS: IBUPROFEN 600 MG TAB PO PRN (21:51)
[2023-02-18] MEDS: IBUPROFEN 600 MG TAB PO PRN ×3 (03:27→14:41)
[2023-02-18] MEDS ORDERED: FERROUS SULFATE 325 MG TAB PO SCH (08:00)
[2023-02-18] MEDS ORDERED: PRENATAL VITAMIN 1 TAB PO SCH (08:00)
[2023-02-18] MEDS: DOCUSATE SODIUM 100 MG CAP PO SCH (08:36)
[2023-02-18] MEDS ORDERED: bisacodyL 5 MG TABEC PO SCH (20:00)
== END 2023-02-18 18:30 | disposition home or self-care (01) | DRG 807 ==
LOC: 4S1 07:32 → 4E2 20:43
DX: O70.1 Second degree perineal laceration during delivery; E66.9 Obesity, unspecified; O99.214 Obesity complicating childbirth; Z83.3 Family history of diabetes mellitus; Z37.0 Single live birth; Z3A.41 41 weeks gestation of pregnancy